=== PATIENT | female | born 2000 | race American Indian/Alaskan Native ===

== ENCOUNTER → 2022-03-28 | Outpatient (CLI) | payer OTHER | END | disposition home or self-care (01) | LOC: LAB SHORT 14:15 | DX: R30.0 Dysuria (principal) | CPT/HCPCS: 87077; 87086; 87186 ==

== ENCOUNTER 2023-01-07 21:03 | Emergency (ER) | payer OTHER ==
[~2023-01-07] VITALS: Ht 170.2 cm; Wt 90.7 kg
[2023-01-08 00:23] LABS: Source, Urine Clean Catch
[2023-01-08 00:27] LABS: Bilirubin, Urine Neg (Neg); Blood, Urine 1+ (Neg); Glucose Qualitative, Urine Neg (Neg); Ketones, Urine Neg (Neg); Leukocyte Esterase, Urine 1+ (Neg); Nitrite, Urine Neg (Neg); Protein, Urine Neg (Neg); Urobilinogen, Urine NORM (Normal)
[2023-01-08 00:41] LABS: Appearance, Urine Clear (Clear); Color, Urine Yellow (P-Yellow)
[2023-01-08 00:42] LABS: Bacteria Few /hpf; Red Blood Cells, Urine 0-2 /hpf (0-2); Squamous Epithelial Cells Few /hpf (Few); White Blood Cells, Urine 0-2 /hpf (0-5)
[2023-01-08 01:22] LABS: BASOPHILS ABSOLUTE AUTO 0.04 K/mm3 (0.00-0.23); BASOPHILS PERCENT AUTO 0 % (0-2); EOSINOPHILS ABSOLUTE AUTO 0.06 K/mm3 (0.00-0.68); EOSINOPHILS PERCENT AUTO 1 % (0-6); Hemoglobin 13.1 g/dL (11.5-16.0); IMMATURE GRAN ABSOLUTE AUTO 0.02 K/mm3 (0.00-0.10); IMMATURE GRAN PERCENT AUTO 0 % (0-1); LYMPHOCYTES ABSOLUTE AUTO 3.31 K/mm3 (0.84-5.20); LYMPHOCYTES PERCENT AUTO 35 % (21-46); MONOCYTES ABSOLUTE AUTO 0.51 K/mm3 (0.16-1.47); MONOCYTES PERCENT AUTO 5 % (4-13); Mean Corpuscular HGB 28.5 pg (26.0-34.0); Mean Corpuscular HGB Conc 33.6 g/dL (31.5-36.5); Mean Corpuscular Volume 85 fL (80-100); Mean Platelet Volume 9.8 fL (9.1-12.4); NEUTROPHILS ABSOLUTE AUTO 5.66 K/mm3 (1.96-9.15); NEUTROPHILS PERCENT AUTO 59 % (41-73); Platelet Count 342 K/mm3 (150-400); RDW Coefficient Variation 12.3 % (11.7-14.2); RDW Standard Deviation 37.7 fL (35.1-46.3); Red Blood Cell Count 4.59 M/mm3 (3.80-5.20)
[2023-01-08 01:40] LABS: Albumin, Blood 3.4 g/dL (3.4-5.0); Albumin/Globulin Ratio 0.9 (0.8-1.8); Bilirubin, Total 0.3 mg/dL (0.1-1.0); Bun/Creatinine Ratio 13.2 (12.0-20.0); Calcium, Blood 8.8 mg/dL (8.5-10.1); Creatinine, Blood 0.76 mg/dL (0.40-1.00); Globulin, Blood 3.8 g/dL (2.2-4.0); Potassium, Blood 3.3 mmol/L (3.5-5.5); Total Protein, Blood 7.2 g/dL (6.4-8.2)
[2023-01-08] MEDS ORDERED: ONDA4ODT MM (02:24)
[2023-01-08 02:40] VITALS: BP 124/68
== END 2023-01-08 02:38 | disposition home or self-care (01) ==
LOC: ER 21:03
PROVIDERS: Student in an Organized Health Care Education/Training Program
DX: N93.9 Abnormal uterine and vaginal bleeding, unspecified (principal)
CPT/HCPCS: 80053; 81001; 81025; 85025; 96374; 99284-25; A9270; J1885

== ENCOUNTER → 2023-02-23 | Outpatient (CLI) | payer OTHER ==
[~2023-02-23] MED LIST: ONDA4ODT MM
== END | disposition home or self-care (01) ==
LOC: LAB 09:23 → LAB SHORT 09:23
PROVIDERS: Registered Nurse Community Health
DX: Z12.4 Encounter for screening for malignant neoplasm of cervix (principal)
CPT/HCPCS: G0145

== ENCOUNTER 2023-05-24 09:47 | Day surgery (SDC) | payer OTHER ==
[~2023-05-24] VITALS: Ht 168 cm; Wt 97.5 kg
[2023-05-24] VITALS (25 sets, daily range): BP systolic 95–129; BP diastolic 56–88
[~2023-05-24 09:47] MED LIST changes: +BUPR150ER PO; +CELE100 PO; +DEPO-PROVE150 MG/1 M IM; +IBU800 MG PO
--- NOTE | 2023-05-24 10:38 | NUR ---
History, Chart, Medications and Allergies reviewed before start of procedure. Ambulatory in Day Surgery. Pre-Op teaching done. Pt verbalizes understanding. Patient confirms NPO status and agrees with scheduled surgery. Patient states colon prep results light yellow without sediment. Patient States Post-Procedure ride home has been arranged.
--- NOTE | 2023-05-24 11:12 | NUR ---
05/24/23 1112 Tamara Swain HISTORY, CHART, MEDICATIONS AND ALLERGIES REVIEWED BEFORE START OF PROCEDURE. PATIENT CONFIRMS NPO STATUS AND AGREES WITH SCHEDULED PROCEDURE. 3-LEAD EKG REVIEWED WITH PHYSICIAN PRIOR TO START OF PROCEDURE. MONITOR INTACT WITH CONTINUOUS PULSE OXIMETRY,CAPNOGRAPHY, 3-LEAD EKG, INTERMITTENT BP. SUPPLEMENTAL O2 TO BE TITRATED THROUGHOUT PROCEDURE TO MAINTAIN O2 SATURATION ABOVE 90%. PATIENT DETERMINED TO BE ASA APPROPRIATE FOR PROPOFOL SEDATION PRIOR TO START OF PROCEDURE BY .HURRICAINE SPRAY/BITE BLOCK PLACED.
--- NOTE | 2023-05-24 11:57 | NUR ---
PT TO DAY SURGERY STEP DOWN. PT AWAKE AND ORIENTED. ABLE TO MOVE SELF IN BED. NO COMPLAINTS. ASKING FOR WATER.
--- NOTE | 2023-05-24 12:16 | NUR ---
Discharge instructions reviewed with patient. Patient verbalizes understanding. Copy given to patient to take home. Patient States Post-Procedure ride home has been arranged.
--- NOTE | 2023-05-24 12:20 | NUR ---
Discharged via wheelchair to private car for ride home.
== END 2023-05-24 12:25 | disposition home or self-care (01) ==
LOC: ORSCMMR 09:47 → ORD 10:00 → ORSCMMR 12:25
DX: R19.7 Diarrhea, unspecified (principal); R11.2 Nausea with vomiting, unspecified; R23.4 Changes in skin texture; K63.5 Polyp of colon; R19.4 Change in bowel habit; F41.8 Other specified anxiety disorders; Z79.899 Other long term (current) drug therapy; F17.210 Nicotine dependence, cigarettes, uncomplicated; Z68.33 Body mass index [BMI] 33.0-33.9, adult
CPT/HCPCS: 84703; 88305; 88312; 88342; A9270; J2250; J2704; J7120

== ENCOUNTER → 2023-11-30 | Outpatient (CLI) | payer OTHER ==
[2023-11-30 20:09] LABS: Free Thyroxine 0.96 ng/dL (0.70-1.60); Prolactin 7.9 ng/mL; Thyroid Stimulating Hormone 1.46 uIU/mL (0.360-4.800); Triiodothyronine, Free 2.46 pg/mL (2.18-3.98)
== END ==
LOC: LAB 19:01 → LAB SHORT 19:01
PROVIDERS: Registered Nurse Community Health
DX: E28.2 Polycystic ovarian syndrome (principal)
CPT/HCPCS: 83036; 84146; 84439; 84443; 84481

== ENCOUNTER → 2024-01-11 | Outpatient (CLI) | payer OTHER ==
[2024-01-14 15:56] LABS: ANTI-NUCLEAR AB ANA,IGG ELISA None Detected (None Detected)
[2024-01-18 19:20] LABS: ANKYLOSING SPONDYLITIS HLAB27 Negative
== END | disposition home or self-care (01) ==
LOC: LAB SHORT 17:53 → LAB 17:53
PROVIDERS: Family Medicine
DX: R53.83 Other fatigue (principal); M25.50 Pain in unspecified joint
CPT/HCPCS: 81374; 85651; 86038; 86140